=== PATIENT | female | born 1990 | race Caucasian/White ===

== ENCOUNTER 2023-08-30 07:55 | Inpatient (IN) ==
[2023-08-30] MEDS ORDERED: Buffered Lidocaine 1% SYRIN 1 ml INTRADERM ONE (09:13)
[2023-08-30] MEDS ORDERED: Lidocaine 1% VIAL 10 MG/ML 30 ML VIAL INJ PRN (09:13)
[2023-08-30] MEDS ORDERED: miSOPROStol 100 mcg TAB VAGINAL ONE (09:13)
[2023-08-30] MEDS ORDERED: Lactated Ringers 1000 ml BAG 1,000 ML IV ONE (09:13)
[2023-08-30 10:15] LABS: ABS Eosinophils 0.3 10^3/uL (0.0-0.5); ABS Lymphocytes 1.9 10^3/uL (1.0-4.8); ABS Monocytes 0.6 10^3/uL (0.0-0.9); ABS Neutrophils 5.2 10^3/uL (1.5-7.6); ABS Nucleated RBC 0.01 10^3/ul; Eosinophil % 3.2 %; Hematocrit 32.6 % (35-45); Hemoglobin 11.4 g/dL (11.5-14.3); Lymphocyte % 24.2 %; Mean Corpuscular Hgb Conc 35.1 g/dL (31-36); Mean Corpuscular Volume 88.5 fL (80-97); Mean Platelet Volume 9.9 fL (7.5-11.2); Nucleated Red Blood Cells % 0.1 /100 WBC (0.0-0.4); Platelet Count 201 10^3/uL (150-450); Red Blood Count 3.69 10^6/uL (3.63-4.92); Red Cell Distribution Width 14.3 % (12-17)
[2023-08-30 10:33] LABS: Urine Creatinine Concentration 190.52 mg/dL (20.00-320.00)
[2023-08-30 10:36] LABS: Urine TP Creat Ratio 0.13 mg/mg
[2023-08-30 10:45] LABS: Albumin 3.1 g/dL (3.2-5.2); Calcium 8.8 mg/dL (8.6-10.3); Total Bilirubin 0.2 mg/dL (0.2-1.0)
[2023-08-30 10:51] LABS: Albumin/Globulin Ratio 1.5 (1-3); Creatinine, Serum 0.66 mg/dL (0.51-0.95); Globulin 2.1 g/dL (2-4); Total Protein 5.2 g/dL (6.4-8.9)
[2023-08-30 11:33] LABS: Urine Benzodiazepine Screen None Detected (None Detect); Urine Cannabinoids Screen None Detected (None Detect); Urine Opiates Screen None Detected (None Detect)
[2023-08-30] MEDS ORDERED: Oxytocin in LR 20,000 MILLI.UNIT/1,000 ML BAG IV SCH (16:30)
[2023-08-30] MEDS: Lactated Ringers 1000 ml BAG 1,000 ML IV SCH (17:29)
[2023-08-31] MEDS ORDERED: OBEPIDURAL (200 ML) 200 ML EPIDURAL ONE (04:19)
[2023-08-31] MEDS ORDERED: Lidocaine 1.5% EPI 1:200,000 30 ML SDV ONE (04:19)
[2023-08-31] MEDS ORDERED: Sodium Citrate/Citric Acid LIQ 15 ML UDC PO PRN (04:56)
[2023-08-31] MEDS ORDERED: Phenylephrine 40 mcg/mL 10mL (400mcg) SYRINGE IV PUSH PRN (04:56)
[2023-08-31] MEDS ORDERED: Lactated Ringers 1000 ml BAG 500 ML IV PRN (04:56)
[2023-08-31] MEDS ORDERED: Lactated Ringers 1000 ml BAG 1,000 ML IV ONE (04:56)
[2023-08-31] MEDS ORDERED: Lactated Ringers 1000 ml BAG 1,000 ML IV SCH ×2 (05:00→22:00)
[2023-08-31] MEDS: Lactated Ringers 1000 ml BAG 1,000 ML IV SCH ×2 (05:04→17:12)
[2023-08-31 05:17] LABS: Urine Appearance Clear; Urine Bilirubin Negative (Negative); Urine Blood 1+ (Negative); Urine Color Yellow; Urine Glucose Negative (Negative); Urine Ketones Negative (Negative); Urine Nitrite Negative (Negative); Urine Protein Negative (Negative); Urine Specific Gravity 1.008 (1.002-1.030); Urine Urobilinogen Negative (Negative)
[2023-08-31 06:44] LABS: Urine Bacteria Absent (Absent); Urine Red Blood Cell Trace(0-2/hpf) (Absent); Urine Squamous Epithelial Cell Present (Absent); Urine White Blood Cell Trace(0-5/hpf) (Absent)
[2023-08-31] MEDS ORDERED: CMCS: LoraTADine 10 mg TAB (NF) PO ONE (12:16)
[2023-08-31] MEDS: OBEPIDURAL (200 ML) 200 ML EPIDURAL SCH (18:29)
[2023-08-31] MEDS ORDERED: Acetaminophen IV 1 GM/100ML 1,000 MG/100 ML BAG IV ONE (20:45)
[2023-08-31] MEDS ORDERED: Dibucaine 1% OINT 28.35 GM TUBE PR PRN (21:36)
[2023-08-31] MEDS ORDERED: Witch Hazel PAD JAR TOPICAL PRN (21:36)
[2023-08-31] MEDS ORDERED: Glycerin ADULT 2.4 gm SUPP PR PRN (21:36)
[2023-09-01] MEDS: OBEPIDURAL (200 ML) 200 ML EPIDURAL SCH (01:17)
[2023-09-01 06:53] LABS: ABS Basophils 0.1 10^3/uL (0.0-0.1); ABS Eosinophils 0.2 10^3/uL (0.0-0.5); ABS Lymphocytes 2.1 10^3/uL (1.0-4.8); ABS Monocytes 0.8 10^3/uL (0.0-0.9); ABS Neutrophils 12.1 10^3/uL (1.5-7.6); Eosinophil % 1.2 %; Hematocrit 30.7 % (35-45); Hemoglobin 10.8 g/dL (11.5-14.3); Lymphocyte % 13.8 %; Mean Corpuscular Hemoglobin 30.7 pg (27-33); Mean Corpuscular Volume 87.6 fL (80-97); Mean Platelet Volume 9.5 fL (7.5-11.2); Platelet Count 193 10^3/uL (150-450); Red Blood Count 3.51 10^6/uL (3.63-4.92); Red Cell Distribution Width 14.4 % (12-17); White Blood Count 15.2 10^3/uL (3.8-11.8)
[2023-09-01 08:36] LABS: Albumin 2.8 g/dL (3.2-5.2); Albumin/Globulin Ratio 1.3 (1-3); Calcium 8.3 mg/dL (8.6-10.3); Creatinine, Serum 0.87 mg/dL (0.51-0.95); Globulin 2.2 g/dL (2-4); Total Bilirubin 0.4 mg/dL (0.2-1.0); eGFR CKD-EPI 89.6 (>60)
[2023-09-02] MEDS ORDERED: Measles, Mumps,Rubella VACC 0.5 ML/VIAL SUBCUT ONE (06:57)
[2023-09-02] MEDS ORDERED: Influenza vaccine *QUAD* *2023-24* 0.5 ML SYRINGE IM ONE (09:00)
[2023-09-02 16:20] VITALS: BP 143/75
== END 2023-09-02 16:58 | disposition home or self-care (01) | DRG 560 ==
LOC: MCHOBOUT 07:55 → MCHOB 09:16
PROVIDERS: ADMIT Midwife; ATTEND Midwife